=== PATIENT | female | born 2000 | race Caucasian/White ===

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

== ENCOUNTER 2019-07-28 10:38 | Outpatient (CLI) | payer BC ==
[2019-07-28 17:42] LABS: ALBUMIN 3.8 g/dL (3.2-5.5); ALBUMIN/GLOBULIN RATIO 1.3 (1.0-2.2); BILIRUBIN,TOTAL 0.9 mg/dL (0.2-1.0); CALCIUM 9.5 mg/dL (8.5-10.3); CREATININE 0.7 mg/dL (0.4-1.0); TOTAL PROTEIN 6.7 g/dL (6.7-8.2)
[2019-07-28 17:43] LABS: THYROID STIMULATING HORMONE 2.5 uIU/mL (0.34-5.60)
[2019-07-28 17:45] LABS: FREE T4 (FREE THYROXINE) 1.17 ng/dL (0.58-1.64)
== END 2019-07-28 10:39 | disposition home or self-care (01) ==
LOC: LAB.S 10:38
PROVIDERS: ATTEND Physician Assistant
DX: E03.9 Hypothyroidism, unspecified (principal); Z13.1 Encounter for screening for diabetes mellitus; F90.9 Attention-deficit hyperactivity disorder, unspecified type
CPT/HCPCS: 36415; 80053; 84439; 84443

== ENCOUNTER 2020-02-25 08:00 | Outpatient (CLI) | payer BC ==
[2020-02-25 16:10] LABS: GLUCOSE, URINE (UA) NEGATIVE (NEGATIVE); KETONES,URINE (UA) 15 mg/dL (NEGATIVE); LEUKOCYTE ESTERASE, URINE SMALL (NEGATIVE); NITRITE,URINE NEGATIVE (NEGATIVE); OCCULT BLOOD,URINE LARGE (NEGATIVE); PH,URINE 5.5 PH (5.0-7.5); PROTEIN,URINE >=300 mg/dL (NEGATIVE); UROBILINOGEN,URINE 0.2 (NORMAL) E.U./dL (NORMAL)
[2020-02-25 16:13] LABS: BACTERIA,URINE Many /HPF (None Seen); BILIRUBIN,URINE NEGATIVE (NEGATIVE); CLARITY,URINE CLOUDY (CLEAR); ICTOTEST,URINE NEGATIVE; RBC,URINE TNTC /HPF (0-5); SQUAMOUS EPITHELIAL CELL,UR FEW Squamous (<= Few)
[2020-02-25 20:21] LABS: CANDIDA GROUP DNA NEGATIVE (NEGATIVE); CANDIDA KRUSEI DNA NEGATIVE (NEGATIVE); TRICHOMONAS VAGINALIS DNA NEGATIVE (NEGATIVE)
[2020-02-25 21:29] LABS: TRICHOMONAS VAGINALIS DNA NEGATIVE (NEGATIVE)
== END 2020-02-25 23:59 | disposition home or self-care (01) ==
LOC: LAB.R 08:00
PROVIDERS: ATTEND Advanced Practice Midwife
DX: N39.0 Urinary tract infection, site not specified (principal); Z30.49 Encounter for surveillance of other contraceptives; Z11.3 Encounter for screening for infections with a predominantly sexual mode of transmission; N76.0 Acute vaginitis
CPT/HCPCS: 81001; 87086; 87491; 87591; 87661; 87801

== ENCOUNTER 2020-05-01 17:55 | Outpatient (CLI) | payer BC ==
--- NOTE | 2020-05-01 22:11 | Ultrasound Report ---
PROCEDURE: Abdomen Limited INDICATIONS: RIGHT LOWER QUADRANT PAIN TECHNIQUE: Real-time scanning was performed of the abdominal and retroperitoneal organs, with image documentatio n. COMPARISON: None. FINDINGS: Liver: Liver is normal in size and homogeneous in echotexture. Liver is diffusely echogenic. Gallbladder: Gallbladder sonographically normal. No gallstones. No gallbladder wall thickening with g allbladder wall measuring 2.5 mm. No pericholecystic fluid. No sonographic Arenas's sign. Biliary ducts: Intrahepatic bile ducts are non-dilated. Extrahepatic bile duct caliber measures 3.9 mm. Normal is 6-7 mm or less in diameter, or 10 mm or less post-cholecystectomy. Pancreas: Pancreas not well-seen due to bowel gas cannot be evaluated. Spleen: Spleen is normal in size and homogeneous in echotexture. Kidneys: Kidneys are normal in size and echotexture. Right kidney measures 10.5 cm long; left kidne y was not evaluated. Aorta: Not evaluated. [place]liacs: Not evaluated. IVC: Not evaluated. Miscellaneous: No free abdominal fluid. Small pericardial effusion noted. Appendix is not visualized cannot be evaluated. IMPRESSION: 1. Appendix is not visualized and cannot be evaluated. The study does not exclude appendicitis. 2. No sonographic evidence of cholelithiasis or cholecystitis. 3. Echogenic liver. Finding is typically related to fatty eventration, however the finding is nonspec ific and other etiologies including hepatic cirrhosis can produce a similar appearance. Recommend cor relation with clinical and laboratory data. Reviewed by: Madhuri Marin MD, PhD on 05/01/2020 10:09 PM PDT Approved by: Madhuri Marin MD, PhD on 05/01/2020 10:09 PM PDT Station ID: [id number]
--- NOTE | 2020-05-01 22:14 | Ultrasound Report ---
PROCEDURE: Pelvic w/Transvaginal INDICATIONS: RIGHT LOWER QUADRANT PAIN TECHNIQUE: Real-time scanning was performed of the pelvic organs, with image documentation. Additional endovagi nal scanning was necessary due to incomplete visualization of the adnexal and endometrial structures by transabdominal scanning. COMPARISON: None. FINDINGS: Transabdominal scanning: Limited scanning through the kidneys shows no hydronephrosis. No pathologi c free abdominal or pelvic fluid. Endovaginal scanning: Uterus: Uterus is normal in size at 8.1 x 3.2 x 5.1 cm. The endometrium measures 2.2 mm in combined thickness. Ovaries: Right ovary measures 4.0 x 2.2 x 2.3 cm. Right ovarian follicles are noted which number gre ater than 12 in number. 1.4 x 1.2 x 1.4 cm right ovarian cyst noted. Left ovary measures 2.9 x 2.3 x 2.6 cm. Left ovarian follicles are noted which number greater than 12 in number. Color Doppler evalu ation demonstrates normal flow in the ovaries bilaterally. IMPRESSION: 1. Uterus is sonographically normal. 2. No evidence of ovarian torsion. Please note ultrasound cannot exclude intermittent torsion. 3. Bilateral ovarian follicles which number greater than 12 in number. Finding is nonspecific but can be associated with polycystic ovarian disease. Reviewed by: Madhuri Marin MD, PhD on 05/01/2020 10:13 PM PDT Approved by: Madhuri Marin MD, PhD on 05/01/2020 10:13 PM PDT Station ID: [id number]
== END 2020-05-01 17:56 | disposition home or self-care (01) ==
LOC: DI 17:55
PROVIDERS: ATTEND Physician Assistant
DX: R93.2 Abnormal findings on diagnostic imaging of liver and biliary tract (principal); N83.02 Follicular cyst of left ovary; N83.01 Follicular cyst of right ovary
CPT/HCPCS: 76705; 76830; 76856

== ENCOUNTER 2020-06-30 15:54 | Outpatient (CLI) | payer BC ==
--- NOTE | 2020-06-30 16:35 | XRAY Report ---
PROCEDURE: Toe(s) LT INDICATIONS: LT 3RD TOE PAIN TECHNIQUE: 3 views of the left third toe(s) acquired. COMPARISON: None FINDINGS: Bones: There is a mildly displaced avulsion fracture fragment involving the dorsal base of the third toe distal phalanx. Overlying soft tissue edema. Otherwise, no other acute fractures or dislocations . No suspicious bony lesions. Soft tissues: No suspicious soft tissue densities. IMPRESSION: Mildly displaced avulsion fracture involving the dorsal base of the left third toe distal phalanx. Reviewed by: Branden Farooq MD on 06/30/2020 4:33 PM PDT Approved by: Branden Farooq MD on 06/30/2020 4:33 PM PDT Station ID: [id number]
== END 2020-06-30 15:55 | disposition home or self-care (01) ==
LOC: DI.S 15:54
PROVIDERS: ATTEND Physician Assistant
DX: S92.532A Displaced fracture of distal phalanx of left lesser toe(s), initial encounter for closed fracture (principal)
CPT/HCPCS: 73660

== ENCOUNTER 2020-12-26 10:48 | Outpatient (CLI) | payer BC ==
[2020-12-26 11:43] LABS: ALBUMIN 4.3 g/dL (3.2-5.5); ALBUMIN/GLOBULIN RATIO 1.5 (1.0-2.2); ALKALINE PHOSPHATASE 74 IU/L (42-121); ALT ALANINE AMINOTRANSFERASE 17 IU/L (10-60); AST ASPARTATE AMINOTRANSFERASE 17 IU/L (10-42); BILIRUBIN,TOTAL 0.5 mg/dL (0.2-1.0); BUN - BLOOD UREA NITROGEN 11 mg/dL (6-20); CALCIUM 9.4 mg/dL (8.5-10.3); CARBON DIOXIDE - CO2 24 mmol/L (21-32); CHLORIDE 107 mmol/L (101-111); CHOL/HDL RATIO 3.5 (<4.4); CHOLESTEROL 178 mg/dL; CREATININE 0.6 mg/dL (0.4-1.0); GFR - MDRD 126 (>89); GLUCOSE 88 mg/dL (70-100); HDL CHOLESTEROL 51 mg/dL; LDL CHOLESTEROL,CALCULATED 117 mg/dL; LDL/HDL RATIO 2.3 (<4.4); POTASSIUM 4.4 mmol/L (3.5-5.0); SODIUM 139 mmol/L (135-145); TOTAL PROTEIN 7.2 g/dL (6.7-8.2); TRIGLYCERIDES 49 mg/dL; VLDL CHOLESTEROL 10 mg/dL
[2020-12-26 11:57] LABS: THYROID STIMULATING HORMONE 3.42 uIU/mL (0.34-5.60)
[2020-12-26 11:59] LABS: FREE T4 (FREE THYROXINE) 0.92 ng/dL (0.58-1.64)
== END 2020-12-26 10:49 | disposition home or self-care (01) ==
LOC: LAB 10:48
PROVIDERS: ATTEND Physician Assistant
DX: E03.9 Hypothyroidism, unspecified (principal); Z13.1 Encounter for screening for diabetes mellitus; E78.5 Hyperlipidemia, unspecified
CPT/HCPCS: 36415; 80053; 80061; 83721; 84439; 84443